=== PATIENT | male | born 1970 | race Caucasian/White ===

== ENCOUNTER 2017-02-09 10:45 | Emergency (ER) | payer BC ==
--- NOTE | 2017-02-09 10:50 | PDOC ---
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 He denies distal weakness or paresthesias. His last tetanus vaccination was 1 year ago. 02/09/17 10:59 - Physicial Exam PE: 02/09/17 10:50 He is well appearing and in no acute distress Laceration noted 2.5 cm in length and 0.5 cm deep No evidence of muscle involvement 02/09/17 10:59 02/09/17 11:37 - Medical Decision Making 02/09/17 11:10 Resident repaired laceration with 3, 4.0, absorbable sutures Wound edges approximated well Clinical impression: Thigh laceration I discussed the physical exam findings and final diagnoses with the patient. I answered all of the patient's questions. The patient was satisfied with the care received and felt comfortable with the discharge plan and treatment plan. The patient will call their primary care physician within 24 hours to arrange follow-up and will return to the Emergency Department with any new, persistent or worsening symptoms. 02/09/17 11:37 Discharge Disposition - Diagnosis Thigh laceration - Discharge Dispostion Disposition: HOME Condition at time of disposition: Improved - Referrals Referrals: Tj Macias [Primary Care Provider] - - Patient Instructions Printed Discharge Instructions: DI for Laceration Repair -- Simple Additional Instructions: Sutures are absorbable and should dissolve on their own in 10-14 days. Return to the emergency department immediately with ANY new, persistent or worsening symptoms. You MUST call and follow up with your doctor tomorrow. Please make sure your doctor reviews the results of your emergency department evaluation. - Post Discharge Activity Work/School Note: Back to Work
[2017-02-09 10:55] VITALS: BP 129/89; PULSE 94; TEMP 97.6; BMI 29.4
--- NOTE | 2017-02-09 11:56 | PDOC ---
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 He was cutting towards himself and cut himself in L medial/anterior of thigh. Pt states there was minimal blood drainage and he feels almost no pain. He made it to ER approximately 10 min after the cut. He denies N/V/F/C, light-headedness, dizziness, chest pain, sob, abdominal pain. Past History - Past Medical History Allergies/Adverse Reactions: Allergies Allergy/AdvReac Type Severity Reaction Status Date / Time No Known Allergies Allergy Verified 02/09/17 10:49 Home Medications: Ambulatory Orders Pantoprazole Sodium [Protonix -] 20 mg PO DAILY 02/22/14 Gabapentin 100 mg PO ASDIR 02/09/17 GI Disorders: Yes (REFLUX) Other medical history: CHRONIC BACKPAIN - Surgical History Appendectomy: Yes - Psycho/Social/Smoking Cessation Hx Anxiety: No Suicidal Ideation: No Smoking History: Never smoked Hx Alcohol Use: No Drug/Substance Use Hx: No Review of Systems - Review of Systems Able to Perform ROS?: Yes Comments:: CONSTITUTIONAL: Absent: fever, no chills, no fatigue CARDIOVASCULAR: Absent: chest pain, no palpitations RESPIRATORY: Absent:no SOB GI: Absent: abdominal pain, no nausea, no vomiting MUSCULOSKELETAL: Absent: no arthralgia, no myalgia SKIN: +cut on L medial/anterior thigh. Absent: rash NEURO: Absent: light-headedness, dizziness *Physical Exam - Vital Signs Last Vital Signs Temp Pulse Resp BP Pulse Ox 97.6 F 94 H 18 129/89 99 02/09/17 10:45 02/09/17 10:45 02/09/17 10:45 02/09/17 10:45 02/09/17 10:45 - Physical Exam Comments: GENERAL: Well-appearing, well-nourished. No apparent distress. HEENT: Normocephalic, atraumatic. EOM intact. CARDIOVASCULAR: Normal S1, S2. Regular rate and rhythm. PULMONARY: Clear to auscultation bilaterally. ABDOMEN: Soft, non-distended, non-tender. EXTREMITIES: Normal ROM in all four extremities. No gross deformities. SKIN: +L medial thigh 2.5cm long by 1 cm deep skin tear s/p razor trauma. Minimal bleeding. Warm, dry. NEUROLOGICAL: No focal neurological deficits. 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 Area numbed with lidocaine. Sutured using absorbable stitches w/3 stitches. Bacitracin applied and covered with gauze. Pt instructed to keep dry for 24 hours and reapply bacitracin and stitches should absorb within 2 weeks. *DC/Admit/Observation/Transfer Diagnosis at time of Disposition: Thigh laceration - Discharge Dispostion Disposition: HOME Condition at time of disposition: Improved - Referrals Referrals: Tj Macias [Primary Care Provider] - - Patient Instructions Printed Discharge Instructions: DI for Laceration Repair -- Simple Additional Instructions: Sutures are absorbable and should dissolve on their own in 10-14 days. Return to the emergency department immediately with ANY new, persistent or worsening symptoms. You MUST call and follow up with your doctor tomorrow. Please make sure your doctor reviews the results of your emergency department evaluation. - Post Discharge Activity Work/School Note: Back to Work
== END 2017-02-09 11:44 | disposition home or self-care (01) ==
LOC: FER 10:45
PROC: 0HQJXZZ Repair Left Upper Leg Skin, External Approach (ICD-10-PCS; principal; 2017-02-09)
DX: S71.112A Laceration without foreign body, left thigh, initial encounter (principal); W26.0XXA Contact with knife, initial encounter; Y93.9 Activity, unspecified; Y92.9 Unspecified place or not applicable; G89.29 Other chronic pain; K21.9 Gastro-esophageal reflux disease without esophagitis
CPT/HCPCS: 99283-25